=== PATIENT | female | born 1965 | race Caucasian/White ===

== ENCOUNTER 2021-11-15 00:09 | Emergency (ER) | payer MEDICAID, SELFPAY ==
--- NOTE | ~2021-11-15 | XR_ITS ---
EXAMINATION: XR TIBIA/FIBULA, LEFT XR ANKLE, LEFT CLINICAL INFORMATION: Fall 3 days ago COMPARISON: None TECHNIQUE: 2 views of the left tibia/fibula. 3 views of the left ankle. FINDINGS: Left tibia/fibula: There is an obliquely oriented distal tibial diaphyseal fracture. Slight posterior displacement of the distal fragment by 0.3 cm. Nondisplaced fracture of the distal fibular metadiaphysis. The knee is well aligned. Diffuse soft tissue swelling of the lower leg. Left ankle: Partially visualized tibial and fibular fractures. The ankle mortise is congruent. No ankle joint effusion. Prominent heel spurs. XR/XR tibia fibula LT 2V IMPRESSION: Mid tibial diaphyseal fracture with slight displacement. Nondisplaced distal fibular fracture.
--- NOTE | ~2021-11-15 | XR_ITS ---
EXAMINATION: XR TIBIA/FIBULA, LEFT XR ANKLE, LEFT CLINICAL INFORMATION: Fall 3 days ago COMPARISON: None TECHNIQUE: 2 views of the left tibia/fibula. 3 views of the left ankle. FINDINGS: Left tibia/fibula: There is an obliquely oriented distal tibial diaphyseal fracture. Slight posterior displacement of the distal fragment by 0.3 cm. Nondisplaced fracture of the distal fibular metadiaphysis. The knee is well aligned. Diffuse soft tissue swelling of the lower leg. Left ankle: Partially visualized tibial and fibular fractures. The ankle mortise is congruent. No ankle joint effusion. Prominent heel spurs. XR/XR ankle LT min 3V IMPRESSION: Mid tibial diaphyseal fracture with slight displacement. Nondisplaced distal fibular fracture.
[2021-11-15 01:30] VITALS: BP 118/68; PULSE 88; RESP 16; TEMP 36.3; O2SAT 97; BMI 28.1
--- NOTE | 2021-11-15 01:32 | ED_ITS ---
HPI - Fall General Chief Complaint: Fall Stated Complaint: ankle inj Time Seen by Provider: 11/15/21 01:31 History of Present Illness HPI Narrative: Patient is a 56-year-old female presents today with having left ankle injury. Patient slipped 3 days ago. Complaining of pain over the ankle and over the distal tib-fib area. No systemic complaints. No head injury. Not on blood thinners. Patient's home. No history diabetes. The fall was mechanical in nature. There was no loss of consciousness no nausea no vomiting no focal weakness Related Data Home Medications Medication Instructions Recorded Confirmed omeprazole 20 mg capsule,delayed 1 cap PO DAILY 11/15/21 11/15/21 release sertraline 100 mg tablet 1 tab PO DAILY 11/15/21 11/15/21 trazodone 100 mg tablet 1 tab PO BEDTIME 11/15/21 11/15/21 Previous Rx's Medication Instructions Recorded ibuprofen 400 mg tablet 400 mg PO Q6H PRN #20 tab 11/15/21 oxycodone 5 mg tablet 5 mg PO Q8H PRN #7 tab 11/15/21 Allergies Allergy/AdvReac Type Severity Reaction Status Date / Time No Known Allergies Allergy Unverified 08/31/21 14:23 [No Known Allergies*] Review of Systems Review of Systems: No fever no chills no chest pain or shortness. Positive pain localized to the left lower extremity Yes all other systems are reviewed and are negative [facility] Past Medical History Medical History (Updated 11/15/21 @ 02:38 by Jenna Rodriguez MD) Anxiety Asthma Hypertension Panic attack Social History Social History (System 08/31/21 @ 14:23 by Lou Castellano) Advance Directives: No Physical Exam Vital Signs: Vital Signs: Last Vital Signs Temp 97.3 F 11/15/21 01:30 Pulse 88 11/15/21 01:30 Resp 16 11/15/21 01:30 BP 118/68 11/15/21 01:30 Pulse Ox 97 11/15/21 01:30 BMI result Body Mass Index 28.1 Appearance: Alert. Oriented X3. No acute distress. Eyes: Pupils equal, round and reactive to light. ENT: Pharynx normal. Neck: Normal inspection. Neck supple. No lymph nodes noted. No crepitus CVS: Normal heart rate and rhythm. Pulses normal. Normal S1 and S2 Respiratory: No respiratory distress. Breath sounds normal. No Wheezing. No rales Abdomen: Soft and nontender. No rigidity. No distention. good BS x4 Skin: Skin warm and dry. Normal skin color. Normal skin turgor. Extremities: Left lower extremity there is swelling and pain on palpation of medial and lateral malleolus. Positive bruising/pain noted in the distal tib- fib area. Pulses 2+ at dorsalis pedis. Sensation distally intact. Able to move her toes without any difficulties. Capillary refill less than 2 seconds. Neuro: Oriented X 3. No motor deficit. No sensory deficit. Moving all extermities. No slurred speech Procedures Orthopedic Splinting/Casting Injury #1: Side: left Lower Extremity Injury Location: lower leg Lower Extremity Immobilizer: posterior splint and stirrup splint Other Orthopedic Equipment: crutches MDM - Fall MDM Narrative Medical decision making narrative: X-ray showed a distal tibial fibular fracture. Patient in no distress. No weight-bearing. Will have patient follow-up orthopedics on outpatient basis. Splint was placed. In stable condition Differential Diagnosis Differential diagnosis: Likely fracture Medical Records Attestation: I reviewed the patient's medical records. Lab Data Attestation: I reviewed the patient's lab results. Discharge Plan Discharge Clinical Impression: Tibia/fibula fracture, shaft Patient Disposition: Home, Self-Care Instructions: Leg Fracture (ED), Crutch Instructions (ED) Prescriptions: New ibuprofen 400 mg tablet 400 mg PO Q6H PRN (Reason: pain) Qty: 20 0RF oxycodone 5 mg tablet 5 mg PO Q8H PRN (Reason: pain) Qty: 7 0RF No Action sertraline 100 mg tablet 1 tab PO DAILY 0RF trazodone 100 mg tablet 1 tab PO BEDTIME 0RF omeprazole 20 mg capsule,delayed release(DR/EC) 1 cap PO DAILY 0RF Referrals: Filiberto Pablo MD [Physician] - 2 days (Please use the crutches. Nonweightbearing. Close follow-up with orthopedics on an outpatient basis)
[2021-11-15] MEDS: oxyCODONE HCl Immed Release 5 MG TABLET PO (02:40)
--- NOTE | 2021-11-15 02:56 | PC.NURSE ---
Posterior short leg splint and sugar tong applied to right leg. Dr Rodriguez assessed splints for placement. Pt given crutches, teach back done.
== END 2021-11-15 03:18 | disposition home or self-care (01) ==
PROVIDERS: Emergency Provider Emergency Medicine Emergency Medical Services
DX: S82.302A Unspecified fracture of lower end of left tibia, initial encounter for closed fracture (principal); M79.662 Pain in left lower leg; W01.0XXA Fall on same level from slipping, tripping and stumbling without subsequent striking against object, initial encounter; Y93.9 Activity, unspecified; Y92.9 Unspecified place or not applicable; Y99.9 Unspecified external cause status; Z79.899 Other long term (current) drug therapy
CPT/HCPCS: 29505; 73590; 73610; 99283

== ENCOUNTER 2021-11-25 07:39 | Outpatient (REF) | payer MEDICAID, SELFPAY ==
--- NOTE | ~2021-11-25 | XR_ITS ---
EXAMINATION: XR TIBIA AND FIBULA, LEFT CLINICAL INFORMATION: Tibia/fibular fracture. COMPARISON: 11/15/2021 tibia/fibular radiographs. TECHNIQUE: AP and lateral views of the left tibia and fibula were obtained. FINDINGS: Acute, minimally displaced and varus angulated fractures of the distal diaphyses of the tibia and fibula. The proximal tibia and fibular are intact. Moderate surrounding soft tissue swelling is seen. XR/XR tibia fibula LT 2V IMPRESSION: Acute, minimally displaced and angulated fractures of the distal diaphyses of the tibia and fibula with moderate soft tissue swelling.
== END 2021-11-25 07:40 | disposition home or self-care (01) ==
LOC: HO.HOSX 07:39
PROVIDERS: Visit Provider Physician Assistant
DX: S82.202A Unspecified fracture of shaft of left tibia, initial encounter for closed fracture (principal); S82.402A Unspecified fracture of shaft of left fibula, initial encounter for closed fracture; W01.0XXA Fall on same level from slipping, tripping and stumbling without subsequent striking against object, initial encounter; Y93.9 Activity, unspecified; Y92.9 Unspecified place or not applicable; Y99.9 Unspecified external cause status
CPT/HCPCS: 73590; 99202

== ENCOUNTER 2021-11-26 13:45 | Inpatient (IN) | payer MEDICAID, SELFPAY ==
--- NOTE | 2021-11-25 14:34 | P.CONAN_ITS ---
Documented by User: Rossy Gutierrez NP 11/25/21 14:35 HPI - Anesthesia Eval Consult details Narrative: 56yo F for Left Tibial I-M Nailing PMFSH Active Problems Active Problems: All Active Problems (Updated 11/25/21 @ 13:04 by Rossy Gutierrez NP) Fracture of left tibia and fibula (Acute) Past Medical History Medical History Anxiety Asthma GERD (gastroesophageal reflux disease) HLD (hyperlipidemia) Hypertension Panic attack Social History Social History Patient Tobacco Use Status: Current everyday Tobacco user Tobacco use type: Cigarette Cigarettes Per Day: 3 Years Smoked: 10 Smoked in Last 30 Days: Yes Use of substances other than those prescribed or required for medical reasons: No Are you DNR?: No Advance Directives: No Advance Directives Information Provided: Yes Current occupational status: unemployed Meds Allergies Allergy/AdvReac Type Severity Reaction Status Date / Time No Known Allergies Allergy Unverified 11/25/21 11:39 [No Known Allergies*] Home Medications Medication Instructions Recorded Confirmed Last Taken Type omeprazole 20 mg capsule,delayed 1 cap PO DAILY 11/15/21 11/15/21 11/14/21 09:00 History release 100 mg sertraline 100 mg tablet 1 tab PO DAILY 11/15/21 11/15/21 11/14/21 09:00 History trazodone 100 mg tablet 1 tab PO BEDTIME 11/15/21 11/15/21 1 Day Ago History ~11/14/21 albuterol sulfate 90 mcg/actuation 2 puff PO Q4-6H PRN 11/25/21 Unknown History aerosol inhaler (ProAir HFA) amlodipine 5 mg tablet 5 mg PO DAILY 11/25/21 Unknown History atorvastatin 20 mg tablet 20 mg PO DAILY 11/25/21 Unknown History azelastine 137 mcg (0.1 %) nasal 2 spray INTRANASAL BID 11/25/21 Unknown History spray aerosol cholecalciferol (vitamin D3) 50 50 mcg PO DAILY 11/25/21 Unknown History mcg (2,000 unit) capsule escitalopram oxalate 20 mg tablet 20 mg PO DAILY 11/25/21 Unknown History losartan 100 mg tablet 100 mg PO DAILY 11/25/21 Unknown History nicotine (polacrilex) 2 mg buccal mg PO 11/25/21 Unknown History lozenge Exam Exam Date and Time: November 25, 2021 1434 Assessment and Plan Assessment Anesthesia Assessment: Chart Reviewed Documented by User: Hilary Sterling MD 11/26/21 12:36 [facility] Past Medical History Medical History Anxiety Asthma GERD (gastroesophageal reflux disease) HLD (hyperlipidemia) Hypertension Panic attack Surgical History History of Problems with Anesthesia: No Social History Social History Patient Tobacco Use Status: Current everyday Tobacco user Tobacco use type: Cigarette Cigarettes Per Day: 3 Years Smoked: 10 Smoked in Last 30 Days: Yes Use of substances other than those prescribed or required for medical reasons: No Are you DNR?: No Advance Directives: No Advance Directives Information Provided: Yes Current occupational status: unemployed Meds Allergies Allergy/AdvReac Type Severity Reaction Status Date / Time No Known Allergies Allergy Unverified 11/25/21 11:39 [No Known Allergies*] Home Medications Medication Instructions Recorded Confirmed Last Taken Type omeprazole 20 mg capsule,delayed 1 cap PO DAILY 11/15/21 11/15/21 11/14/21 09:00 History release 100 mg sertraline 100 mg tablet 1 tab PO DAILY 11/15/21 11/15/21 11/14/21 09:00 History trazodone 100 mg tablet 1 tab PO BEDTIME 11/15/21 11/15/21 1 Day Ago History ~11/14/21 albuterol sulfate 90 mcg/actuation 2 puff PO Q4-6H PRN 11/25/21 Unknown History aerosol inhaler (ProAir HFA) amlodipine 5 mg tablet 5 mg PO DAILY 11/25/21 Unknown History atorvastatin 20 mg tablet 20 mg PO DAILY 11/25/21 Unknown History azelastine 137 mcg (0.1 %) nasal 2 spray INTRANASAL BID 11/25/21 Unknown History spray aerosol cholecalciferol (vitamin D3) 50 50 mcg PO DAILY 11/25/21 Unknown History mcg (2,000 unit) capsule escitalopram oxalate 20 mg tablet 20 mg PO DAILY 11/25/21 Unknown History losartan 100 mg tablet 100 mg PO DAILY 11/25/21 Unknown History nicotine (polacrilex) 2 mg buccal mg PO 11/25/21 Unknown History lozenge Exam Airway Mallampati Class: II TM Dist: >3cm Neck ROM: Full Partial: Upper and Lower Loose/Missing/Broken Teeth: Yes, Upper and Lower Heart: RRR Lungs: CTA Assessment and Plan Assessment Anesthesia Assessment: Anesthesia Plan Discussed Final Anesthetic Review History of Problems with Anesthesia: No NPO: Yes ASA Class: II Final Preanesthetic Review: Meds/Allgs Chart Reviewed, Consent Obtained/Reviewed and Anes Risks/Benef Reviewed Patient Risk: Low Procedure Risk: Low Anesthetic Plan Anesthetic Plan: GA Disposition: Standard PACU
[2021-11-26] VITALS (13 sets, daily range): BP systolic 125–176; BP diastolic 63–105; PULSE 78–114; RESP 14–20; TEMP 36.3–37; O2SAT 94–98; BMI 28.1
--- NOTE | ~2021-11-26 | FL_ITS ---
EXAMINATION: XR FLUOROSCOPY WITH IMAGES CLINICAL INFORMATION: Fracture COMPARISON: Previous x-ray 11/25/2021 TECHNIQUE: Fluoroscopy performed by Dr. Filiberto Pablo. Fluoroscopy time: 0.9 minutes DAP: 0.06 Gycm2 Images: 8 FINDINGS: Fluoroscopy guidance was provided for ORIF of left tibial fracture. Images demonstrate an intramedullary fab and 2 proximal and one distal screw with improved alignment. FL/FL guidance in OR IMPRESSION: Fluoroscopy guidance for ORIF of left tibial fracture.
[2021-11-26] MEDS: Lactated Ringers 1,000 ML 100 ML IVCONT ×2 (11:01→14:55)
--- NOTE | 2021-11-26 13:33 | P.BOP_ITS ---
Brief Operative Note Date of Service: 11/26/21 Pre-op diagnosis: Left tibia/fibula fracture Post-op diagnosis: same Procedure: Left tibial IMN Implants: [employer] T2 [id number] tibial nail Surgeon: Filiberto Pablo MD Anesthesia: GETA and local Was an Cement Tester Assistant used for this Procedure?: Yes Cement Tester Assistant: Parth Morgan Estimated blood loss (mL): 250 IV fluids (mL): 1,000 Pathology: none sent Condition: stable Disposition: PACU
--- NOTE | 2021-11-26 13:33 | MHC.SHP ---
Pre-Procedural Eval Section A Date of Service: 11/26/21 The patient is an INPATIENT: No Changes since office visit: Yes Patient answered all questions; No Cold of Flu in the past 2 weeks, No New Medical Problems and No Changes in Medication The History & Physical has been completed within 30 days and I have reviewed it.: Yes Section B Chief Complaint: Unspecified fracture of shaft of left tibia, Allergies: Allergies Allergy/AdvReac Type Severity Reaction Status Date / Time No Known Allergies Allergy Unverified 11/25/21 11:39 [No Known Allergies*] Plan I have reviewed the history and physical and performed a pertinent physical examination on my patient. No changes have occurred unless specified.
[2021-11-26] MEDS: HYDROmorphone HCl 0.5 MG/0.5 ML SYRINGE 0.25 MG IVPUSH ×2 (13:55→14:00)
[2021-11-26] MEDS: oxyCODONE HCl Immed Release 5 MG TABLET 10 MG PO ×2 (14:00→21:38)
[2021-11-26] MEDS: Acetaminophen 325 MG TABLET 650 MG PO (14:22)
--- NOTE | 2021-11-26 14:50 | PHA.MEDREC ---
Pharmacy Consult ? Medication Reconciliation Pharmacy has completed the medication reconciliation.
[2021-11-26 15:08] LABS: COVID-19 Test Negative (Negative); IDNOW Serial# 16C4AD1C
--- NOTE | 2021-11-26 15:39 | P.CONIM_ITS ---
History of Present Illness Data of Consult Service Date: 11/26/21 Requesting physician: Parth Morgan Primary Care Provider: [facility] Reason for consult: medical management This is a 56-year-old female with history of hypertension who is admitted after undergoing operative fixation of left tib-fib fracture. She initially was seen in the emergency department on November 15 after a fall. At that time imaging showed a mid tibial diaphyseal fracture with slight displacement and nondisplaced distal fibular fracture. The hospitalists were asked to see her in consultation for medical management. She is reporting pain in her left leg otherwise has no specific complaints at this time. Review of Systems Review of Systems: Yes all other systems are reviewed and are negative Constitutional: Constitutional: Denies chills and Denies fever(s) Cardiovascular: Cardiovascular: Denies chest pain, Denies palpitations and Denies dyspnea Respiratory: Respiratory: Denies cough and Denies dyspnea Gastrointestinal: Gastrointestinal: Denies abdominal pain, Denies diarrhea, Denies nausea and Denies vomiting Endocrine: Endocrine: Denies palpitations [facility] Medical History Anxiety Asthma GERD (gastroesophageal reflux disease) HLD (hyperlipidemia) Hypertension Panic attack Functional capacity: independent ambulation Pertinent family history: Reviewed and patient denies family history of coronary artery disease, stroke, cancer Social History Household Members: None Housing: Apartment Do you presently have visiting nurse or other home services: No Patient Tobacco Use Status: Current everyday Tobacco user Tobacco use type: Cigarette Cigarettes Per Day: 3 Years Smoked: 10 Smoked in Last 30 Days: Yes Patient Interested in Nicotine Replacement: Yes Patient Given Instructions on How to Stop Smoking: Yes Date Education Initiated: 11/26/21 Use of substances other than those prescribed or required for medical reasons: No Have you been hit, kicked, punched, or otherwise hurt by someone within the past year? If so, by whom?: No Do you feel safe in your current relationship?: Yes Is there a partner from a previous relationship who is making you feel unsafe now?: No Are you made to feel afraid or neglected: No Are you DNR?: No Advance Directives: No Advance Directives Information Provided: Yes Do you have thoughts of harming others: None Do you have a plan to hurt others: No Plan Recently lost weight without trying: No Nutrition Risks: No Nutritional Risk Current occupational status: unemployed Meds Allergies Allergy/AdvReac Type Severity Reaction Status Date / Time No Known Allergies Allergy Unverified 11/25/21 11:39 [No Known Allergies*] Active Medications: Current Medications Acetaminophen (Acetaminophen 325 Mg Tablet) 650 mg PO Q6H PRN PRN Reason: Pain, Mild (Pain Scale 1-3) Docusate Sodium (Docusate Sodium 100 Mg Capsule) 100 mg PO BID [facility] Hydromorphone HCl (Hydromorphone Hcl 1 Mg/Ml Syringe) 0.25 mg IVPUSH Q4H PRN; Protocol PRN Reason: Pain, Severe (Pain Scale 7-10) Lactated Ringer's (Lr) 1,000 mls @ 100 mls/hr IVCONT .Q10H [facility] Last Admin: 11/26/21 14:55 Dose: 100 mls/hr Documented by: Diphenhydramine HCl 25 mg/ (Sodium Chloride) 50.5 mls @ 200 mls/hr IV ONCE [facility] Last Infusion: 11/26/21 15:33 Dose: Infused Documented by: Cefazolin Sodium/Dextrose (Ancef) 2 gm in 50 mls @ 100 mls/hr IV POSTOP ONE Stop: 11/26/21 18:29 Ondansetron HCl (Ondansetron Hcl 4 Mg/2 Ml Vial) 4 mg IVPUSH Q8H PRN PRN Reason: Nausea Oxycodone HCl (Oxycodone Hcl Immed Release 5 Mg Tablet) 10 mg PO Q4H PRN PRN Reason: Pain, Moderate (Pain Scale 4-6 Oxycodone HCl (Oxycodone Hcl Er 10 Mg Tab.Er.12h) 10 mg PO BID [facility] Sodium Chloride (0.9 % Sodium Chloride Flush 3 Ml Syringe) 3 ml IVFLUSH QSHIFT [facility] Last Admin: 11/26/21 15:35 Dose: Not Given Documented by: Home Medications Medication Instructions Recorded Confirmed Last Taken Type omeprazole 20 mg capsule,delayed 1 cap PO DAILY 11/15/21 11/26/21 11/14/21 09:00 History release 100 mg trazodone 100 mg tablet 1 tab PO BEDTIME 11/15/21 11/26/21 1 Day Ago History ~04/24/22 albuterol sulfate 90 mcg/actuation 2 puff PO Q4-6H PRN 11/25/21 11/26/21 Unknown History aerosol inhaler (ProAir HFA) amlodipine 5 mg tablet 5 mg PO DAILY 11/25/21 11/26/21 Unknown History atorvastatin 20 mg tablet 20 mg PO DAILY 11/25/21 11/26/21 Unknown History cholecalciferol (vitamin D3) 50 50 mcg PO DAILY 11/25/21 11/26/21 Unknown History mcg (2,000 unit) capsule escitalopram oxalate 20 mg tablet 20 mg PO DAILY 11/25/21 11/26/21 Unknown History losartan 100 mg tablet 100 mg PO DAILY 11/25/21 11/26/21 Unknown History buspirone 5 mg tablet 1 tab PO BID 11/26/21 11/26/21 Unknown History Physical Exam Vital Signs and Narrative: Vital Signs: Last Vital Signs Temp 98.3 F 11/26/21 15:15 Pulse 96 11/26/21 15:15 Resp 16 11/26/21 15:15 BP 131/92 H 11/26/21 15:15 Pulse Ox 97 11/26/21 15:15 BMI result Body Mass Index 28.1 Const: General: cooperative, comfortable, alert and awake Nutritional Appearance: average body habitus Orientation/consciousness: patient oriented x3 Eyes: Pupils: Equal, round and reactive pupils present EOM: EOMs intact bilaterally Resp: Effort & Inspection: normal respiratory effort and able to speak in complete sentences Auscultation: clear to auscultation bilaterally Cardio: Rate: regular rate Heart sounds: S1 normal heart sound present and S2 normal heart sound present GI: Inspection: No distended Palpation (GI): Soft to palpation and nontender Neuro: General: patient oriented x3 Cranial nerves: Yes Equal, round and reactive pupils present Extrem: Other: left leg wrapped in mary bandage to mid thigh, offloading boot Results Labs Labs: Laboratory Results - last 24 hr 11/26/21 14:23 COVID-19 ([facility]) Negative COVID-19 Clin Com See Note Assessment and Plan (1) Fracture of left tibia and fibula: Status: Acute Plan This is a 56-year-old female with history of anxiety, asthma, hypertension who sustained fall at the end of October sustaining left tib-fib fracture status post left tibial IMN left tib/fib fracture s/p IMN management per orthopedic team Hypertension BP under adequate control Continue home dose of losartan, Norvasc Monitor blood pressure closely GERD Continue omeprazole Asthma No acute exacerbation at this time Continue home inhalers DVT prophylaxis-SCDs Attending: dr. narayan Thank you for allowing us to participate in the care of this patient. we will follow along with you.
[2021-11-26] MEDS: HYDROmorphone HCl 1 MG/ML SYRINGE 0.25 MG IVPUSH (17:58)
[2021-11-26] MEDS: ceFAZolin Sodium/Dextrose,Iso 2 GM/50 ML PIGGYBACK IV (17:58)
[2021-11-26] MEDS: Docusate Sodium 100 MG CAPSULE PO (21:35)
[2021-11-26] MEDS: traZODone HCL 100 MG TABLET PO (21:35)
[2021-11-26] MEDS: busPIRone HCl 5 MG TABLET PO (21:35)
[2021-11-26] MEDS: oxyCODONE HCl ER 10 MG TAB.ER.12H PO (21:35)
[2021-11-26] MEDS: 0.9 % Sodium Chloride Flush 3 ML SYRINGE IVFLUSH (21:36)
[2021-11-27 03:30] VITALS: BP 138/80; PULSE 96; RESP 14; TEMP 36.3; O2SAT 100
[2021-11-27 06:26] LABS: Hematocrit 36.7 % (37.0-47.0); Hemoglobin 12.5 g/dl (12.0-16.0)
[2021-11-27] MEDS: oxyCODONE HCl Immed Release 5 MG TABLET 10 MG PO (06:51)
[2021-11-27 08:00] VITALS: BP 138/80; PULSE 91; RESP 18; TEMP 36.2; O2SAT 96
[2021-11-27 08:52] VITALS: BP 138/80; PULSE 91; O2SAT 96
--- NOTE | 2021-11-27 09:28 | MHC.CM.PN ---
EMR REVIEWED, PT ADMITTED S/P LT TIBIA FX REPAIR FROM INJURY ON 11/15/21, CM MET W/PT WHO REPORTS SHE LIVES ALONE, IS INDEP W/CARE, HAS CRUTCHES AT HOME AND A BROKEN W/C, PHYSICAL THERAPY HAS REQUESTED A SCRIPT FOR A FRONT WHEELED WALKER FOR PT, PT DENIES HAVING HOME SERVICES, PT VERIFIES PCP IS FAVIOLA JEAN-BAPTISTE, PFIZER VACCINE X2, AND PT DECLINES TO COMPLETE A HCP SHE IS IN A HURRY TO D/C. D/C PLAN: HOME NO SERVICES W/OUTPT FOLLOW UP W/SURGEON, PT TO ARRANGE TRANSPORT.
[2021-11-27] MEDS: Atorvastatin Calcium 20 MG TABLET PO (09:31)
[2021-11-27] MEDS: Docusate Sodium 100 MG CAPSULE PO (09:31)
[2021-11-27] MEDS: Omeprazole 20 MG CAPSULE.DR PO (09:31)
[2021-11-27] MEDS: Aspirin 325 MG TABLET PO (09:31)
[2021-11-27] MEDS: Losartan Potassium 50 MG TABLET 100 MG PO (09:31)
[2021-11-27] MEDS: oxyCODONE HCl ER 10 MG TAB.ER.12H PO (09:32)
[2021-11-27] MEDS: Escitalopram Oxalate 20 MG TABLET PO (09:32)
[2021-11-27] MEDS: Cholecalciferol (Vitamin D3) 25 MCG TABLET 50 MCG PO (09:32)
[2021-11-27] MEDS: 0.9 % Sodium Chloride Flush 3 ML SYRINGE IVFLUSH (09:33)
[2021-11-27] MEDS: amLODIPine Besylate 5 MG TABLET PO (09:35)
[2021-11-27] MEDS: busPIRone HCl 5 MG TABLET PO (09:42)
--- NOTE | 2021-11-27 11:01 | HO.PM.IMPN ---
Subjective Subjective Date of Service: 11/27/21 Interval History: seen and examined this morning s/p left tib/fib surgery no nausea or vomiting. tolerating diet. voiding without difficulty. pain under adequate control Physical Exam Vital Signs: Vital Signs: Last Vital Signs Temp 97.2 F 11/27/21 08:00 Pulse 91 11/27/21 08:52 Resp 18 11/27/21 08:00 BP 138/80 11/27/21 08:52 Pulse Ox 96 11/27/21 08:52 BMI result Body Mass Index 28.1 Objective Data Active Medications Acetaminophen (Acetaminophen 325 Mg Tablet) 650 mg PO Q6H PRN PRN Reason: Pain, Mild (Pain Scale 1-3) Albuterol Sulfate (Albuterol Sulfate 90 Mcg 8 Gm Inhaler) 2 puff INHALE Q4H PRN PRN Reason: Shortness Of Breath Amlodipine Besylate (Amlodipine Besylate 5 Mg Tablet) 5 mg PO DAILY [facility]; Protocol Last Admin: 11/27/21 09:35 Dose: 5 mg Documented by: MARIA A Aspirin (Aspirin 325 Mg Tablet) 325 mg PO BID [facility] Last Admin: 11/27/21 09:31 Dose: 325 mg Documented by: MARIA A Atorvastatin Calcium (Atorvastatin Calcium 20 Mg Tablet) 20 mg PO DAILY [facility] Last Admin: 11/27/21 09:31 Dose: 20 mg Documented by: MARIA A Buspirone HCl (Buspirone Hcl 5 Mg Tablet) 5 mg PO BID [facility] Last Admin: 11/27/21 09:42 Dose: 5 mg Documented by: MARIA A Docusate Sodium (Docusate Sodium 100 Mg Capsule) 100 mg PO BID [facility] Last Admin: 11/27/21 09:31 Dose: 100 mg Documented by: MARIA A Escitalopram Oxalate (Escitalopram Oxalate 20 Mg Tablet) 20 mg PO DAILY [facility] Last Admin: 11/27/21 09:32 Dose: 20 mg Documented by: MARIA A Hydromorphone HCl (Hydromorphone Hcl 1 Mg/Ml Syringe) 0.25 mg IVPUSH Q4H PRN; Protocol PRN Reason: Pain, Severe (Pain Scale 7-10) Last Admin: 11/26/21 17:58 Dose: 0.25 mg Documented by: GEOVANY Diphenhydramine HCl 25 mg/ (Sodium Chloride) 50.5 mls @ 200 mls/hr IV ONCE [facility] Last Infusion: 11/26/21 15:33 Dose: 0 mls/hr Documented by: GEOVANY Losartan Potassium (Losartan Potassium 50 Mg Tablet) 100 mg PO DAILY [facility]; Protocol Last Admin: 11/27/21 09:31 Dose: 100 mg Documented by: MARIA A Nicotine Polacrilex (Nicotine Polacrilex 2 Mg Gum) 2 mg BUCCAL Q2H PRN PRN Reason: Nicotine Cravings Omeprazole (Omeprazole 20 Mg Capsule.Dr) 20 mg PO DAILY@0630 [facility] Last Admin: 11/27/21 09:31 Dose: 20 mg Documented by: MARIA A Ondansetron HCl (Ondansetron Hcl 4 Mg/2 Ml Vial) 4 mg IVPUSH Q8H PRN PRN Reason: Nausea Oxycodone HCl (Oxycodone Hcl Immed Release 5 Mg Tablet) 10 mg PO Q4H PRN PRN Reason: Pain, Moderate (Pain Scale 4-6 Last Admin: 11/27/21 06:51 Dose: 10 mg Documented by: DIEGO Oxycodone HCl (Oxycodone Hcl Er 10 Mg Tab.Er.12h) 10 mg PO BID [facility] Last Admin: 11/27/21 09:32 Dose: 10 mg Documented by: MARIA A Sodium Chloride (0.9 % Sodium Chloride Flush 3 Ml Syringe) 3 ml IVFLUSH QSHIFT [facility] Last Admin: 11/27/21 09:33 Dose: 3 ml Documented by: MARIA A Trazodone HCl (Trazodone Hcl 100 Mg Tablet) 100 mg PO BEDTIME [facility] Last Admin: 11/26/21 21:35 Dose: 100 mg Documented by: DIEGO Vitamin D (Cholecalciferol (Vitamin D3) 25 Mcg Tablet) 50 mcg PO DAILY [facility] Last Admin: 11/27/21 09:32 Dose: 50 mcg Documented by: MARIA A Labs CBC & Chem 7: 11/27/21 05:54 Labs: Laboratory Results - last 24 hr 11/26/21 14:23 COVID-19 ([facility]) Negative COVID-19 Clin Com See Note
--- NOTE | 2021-11-27 11:02 | PC.NURSE ---
IV REMOVED. EDUCATION PROVIDED BY THIS RN TO PATIENT. PATIENT VERBALIZES UNDERSTANDING. DENIES PAIN UPON DISCHARGE.
--- NOTE | 2021-11-27 16:33 | HO.POSTANES ---
Post Anesthesia Evaluation Post Anesthesia Evaluation Vital Signs: Vital Signs Temp Pulse Resp BP Pulse Ox 11/27/21 08:52 91 138/80 96 11/27/21 08:00 97.2 F 91 18 138/80 96 Anesthesia: General LMA Mental Status: Awake Pain Control: Satisfactory Nausea/Vomiting: None Hydration: Adequate Anesthesia-Related Issues: No Anes. Related Issues
--- NOTE | 2021-12-07 12:26 | P.OP_ITS ---
Operative Note Operative Note Date of Service: 11/26/21 Narrative: Date of Service: 11/26/21 Pre-op diagnosis: Left tibia/fibula fracture Post-op diagnosis: same Procedure: Left tibial IMN Implants: Brittany Alpha T2 [id number] tibial nail Surgeon: Filiberto Pablo MD Anesthesia: GETA and local Was an Client Project Coordinator used for this Procedure?: Yes Client Project Coordinator: Parth Morgan Estimated blood loss (mL): 250 IV fluids (mL): 1,000 Pathology: none sent Condition: stable Disposition: PACU Procedure in detail: Patient was brought to the operating room and prepped and draped in standard sterile fashion. Time-out was called to identify proper site procedure proper surgeon and IV antibiotics per weight were administered. She was positioned on the fracture table and biplanar fluoroscopy confirmed initial fracture reduction. I then made a midline incision over th patellar tendon and then incised tihe paratenon and via a transpatellar approach placed the tip of a k- wire on the proximal tibia, just anterior to the articular surface on the lateral and just medial to the lateral emminence on the A. I then drilled into the metadiaphysis and an opening reamer. The articular surface and the soft tissues were protected at all times. I then placed a ball-tipped guidewire and I measured a 330 mm nail. While maintaining biplanar fracture reduction manually I reamed up to a 13. I then placed a [id number] mm nail. I then turned my attention to the proximal oblique scres which were inserted via the midline incision and inserted using standard AO technique and biplanar fluro to conform. Once I was satisfied with the position of the hip screw I turned my attention to the distal aspect of the nail. Using perfect caddo technique I placed 1 static distal interlocking screw in standard AO technique. I then removed all extraneous instrumentation. Final biplanar radiographs were taken. I was satisfied with the position of the hardware and the fracture reduction. I copiously irrigated and closed with absorbable sutures dirk and injected 30 mL of into the area of the incisions. The patient was placed in sterile dressing awakened from anesthesia brought to recovery room stable condition there were no known complications.
== END 2021-11-27 10:45 | disposition home or self-care (01) | DRG 313 ==
LOC: HO.SSSA 13:50 → HO.S3 14:17
PROVIDERS: Admitting Provider Physician Assistant; Visit Provider Orthopaedic Surgery
PROC: 0QSH36Z Reposition Left Tibia with Intramedullary Internal Fixation Device, Percutaneous Approach (ICD-10-PCS; CPT 27759; principal; 2021-11-26 12:00)
DX: S82.202A Unspecified fracture of shaft of left tibia, initial encounter for closed fracture (principal); F17.210 Nicotine dependence, cigarettes, uncomplicated; W19.XXXA Unspecified fall, initial encounter; S82.402A Unspecified fracture of shaft of left fibula, initial encounter for closed fracture; K21.9 Gastro-esophageal reflux disease without esophagitis; F41.9 Anxiety disorder, unspecified; I10 Essential (primary) hypertension; Z71.6 Tobacco abuse counseling; Z20.822 Contact with and (suspected) exposure to COVID-19; Z79.899 Other long term (current) drug therapy
CPT/HCPCS: 27759; 36415; 85014; 85018; 87635; 97161; C1713; C1769; J0690; J1170; J1200; J2250; J3010

== ENCOUNTER 2021-12-06 07:36 | Outpatient (REF) | payer MEDICAID, SELFPAY ==
--- NOTE | ~2021-12-06 | XR_ITS ---
EXAMINATION: XR TIBIA AND FIBULA, LEFT CLINICAL INFORMATION: Pain COMPARISON: 11/25/2021 TECHNIQUE: AP and lateral views of the left tibia and fibula were obtained. XR/XR tibia fibula LT 2V FINDINGS / IMPRESSION: Intramedullary fab present within the tibial diaphysis transfixing the previously seen distal tibial diaphyseal fracture. There are 2 proximal and one distal interlocking screws. The tibial fracture is in near anatomic alignment. Improved alignment of the oblique distal fibular diametaphyseal fracture. Diffuse soft tissue swelling.
== END 2021-12-06 07:37 | disposition home or self-care (01) ==
LOC: HO.HOSX 07:36
PROVIDERS: Visit Provider Physician Assistant
DX: S82.302D Unspecified fracture of lower end of left tibia, subsequent encounter for closed fracture with routine healing (principal); S82.832D Other fracture of upper and lower end of left fibula, subsequent encounter for closed fracture with routine healing
CPT/HCPCS: 73590; 99212

== ENCOUNTER 2022-01-03 07:23 | Outpatient (REF) | payer MEDICAID, SELFPAY | END 2022-01-03 07:24 | disposition home or self-care (01) | LOC: HO.HOSX 07:23 | PROVIDERS: Visit Provider Physician Assistant | DX: Z13.89 Encounter for screening for other disorder (principal) ==

== ENCOUNTER 2022-01-07 07:24 | Outpatient (REF) | payer MEDICAID, SELFPAY | END 2022-01-07 07:25 | disposition home or self-care (01) | LOC: HO.HOSX 07:24 | PROVIDERS: Visit Provider Physician Assistant | DX: Z13.89 Encounter for screening for other disorder (principal) ==

== ENCOUNTER 2022-01-31 12:32 | Outpatient (REF) | payer MEDICAID, SELFPAY ==
--- NOTE | ~2022-01-31 | XR_ITS ---
EXAMINATION: XR TIBIA AND FIBULA, LEFT CLINICAL INFORMATION: Pain in the left leg. COMPARISON: Left leg 12/06/2021, 11/15/2021 TECHNIQUE: AP and lateral views of the left tibia and fibula were obtained. FINDINGS: Status post internal fixation with intramedullary fab of the distal tibial shaft fracture. Fracture line of the tibia demonstrates progressive healing. The tibial fracture line is now only partially visualized at the cortical margin posteriorly and medially. Oblique fracture of the fibula shows no change in alignment of the fracture however the fracture line remains radiolucent. XR/XR tibia fibula LT 2V IMPRESSION: Status post internal fixation of tibia fracture. Evidence of healing of the tibia fracture. Fibular fracture has no change in alignment however remains radiolucent.
== END 2022-01-31 12:33 | disposition home or self-care (01) ==
LOC: HO.HOSX 12:32
PROVIDERS: Visit Provider Physician Assistant
DX: M79.605 Pain in left leg (principal)
CPT/HCPCS: 73590

== ENCOUNTER 2022-03-14 12:54 | Outpatient (REF) | payer MEDICAID, SELFPAY | END 2022-03-14 12:55 | disposition home or self-care (01) | LOC: HO.HOSX 12:54 | PROVIDERS: Visit Provider Physician Assistant | DX: Z13.89 Encounter for screening for other disorder (principal) ==

== ENCOUNTER 2024-06-12 13:27 | Outpatient (REF) | payer MEDICAID, SELFPAY ==
--- NOTE | ~2024-06-12 | MM_ITS ---
EXAMINATION: MM DIAGNOSTIC DIGITAL BREAST TOMOSYNTHESIS, BILATERAL US BREAST LIMITED, LEFT MAMMOGRAPHY: CLINICAL INFORMATION: 59-year-old female, no priors available (last mammogram was in 2007, and is unobtainable), with complaining of palpable lump along the left medial areolar margin. COMPARISON: Mammography: None. This will serve as the new baseline examination. TECHNIQUE: Digital breast tomosynthesis is performed in both the craniocaudal and mediolateral oblique views along with computer-aided detection (CAD). Synthesized 2D images are generated from the tomosynthesis. In addition, full field right exaggerated lateral CC view, as well as 3-D spot compression left CC and MLO views were obtained. This was followed by targeted left breast ultrasound. FINDINGS: There are scattered areas of fibroglandular density (ACR BI-RADS breast composition Category b). Multiple benign calcifications (dystrophic) are present in both breasts. Palpable abnormality appears to relate spatially to a large rounded peripherally calcified oil cyst measuring 1.4 cm in diameter, within the approximate 9:00 axis left breast. We will evaluate this region with ultrasound. There are no suspicious grouped calcifications, areas of architectural distortion, or suspicious masses in either breast. There are no skin or axillary abnormalities. ULTRASOUND: CLINICAL INFORMATION: Palpable abnormality left breast 9:00 axis. COMPARISON: No prior. TECHNIQUE: Targeted sonographic evaluation left breast was performed using a high frequency linear transducer. Attention was given to the 7:00 to the 11:00 axis to include the area of palpable concern. Selected archived documentation. FINDINGS: LEFT BREAST: -At the 9:00 axis, 1 cm from the nipple, there is a peripherally calcified shadowing oil cyst measuring 1.3 x 1.1 x 1.4 cm, correlating with the area of palpable concern. This is benign. -At the 9:00 axis, 2 cm from the nipple, there is a 7 mm oil cyst. Slightly more superiorly of the same level there is a 6 mm oil cyst. -There are no suspicious findings. MM/MM tomosynthesis diagnostic BI IMPRESSION: -There are no findings suspicious for malignancy in either breast. There are benign dystrophic calcifications bilaterally. -Palpable area of concern 9:00 left breast correlates with a large 1.4 cm peripherally calcified oil cyst. There are 2 adjacent smaller oil cysts in the 9:00 axis left breast. These findings are benign. -Recommend the patient resume routine annual screening. OVERALL ASSESSMENT: Mammography: BI-RADS 2 - Benign Findings Ultrasound: BI-RADS 2 - Benign Findings RECOMMENDATION: 1 year F/U This patient's information was entered into a reminder system with a target due date for their next mammogram. Electronically signed by: Liang Herron MD 06/12/2024 02:17 PM ADRYAN GIRON
== END 2024-06-12 13:28 | disposition home or self-care (01) ==
LOC: HO.MAMMO 13:27
PROVIDERS: PCP Nurse Practitioner Primary Care; Visit Provider Nurse Practitioner Primary Care
DX: N63.25 Unspecified lump in the left breast, overlapping quadrants (principal)
CPT/HCPCS: 76642; 77062; 77066

== ENCOUNTER → 2024-06-12 14:00 | Outpatient (BNV) | payer MEDICAID, SELFPAY | PROVIDERS: PCP Nurse Practitioner Primary Care; Visit Provider Radiology Diagnostic Radiology | DX: N63.25 Unspecified lump in the left breast, overlapping quadrants (principal) | CPT/HCPCS: 76642; 77062; 77066 ==

== ENCOUNTER 2024-08-08 13:11 | Outpatient (REF) | payer MEDICAID, SELFPAY ==
[2024-08-09 09:33] LABS: HPV 16,18/45 See PAP report
== END 2024-08-08 13:12 | disposition home or self-care (01) ==
LOC: HO.LNP 13:11
PROVIDERS: Visit Provider Advanced Practice Midwife
DX: Z12.4 Encounter for screening for malignant neoplasm of cervix (principal)
CPT/HCPCS: 87626; 88175

== ENCOUNTER 2024-11-15 12:21 | Outpatient (AMB) | payer MEDICAID, SELFPAY ==
--- NOTE | 2024-11-15 12:27 | A.OFFVIS_ITS ---
Vital Signs 11/15/24 12:47 Height 5 ft 7 in Weight 141 lb BMI 22.1 BP 108/64 Intake Visit Reasons: Colposcopy Loan Servicing Officer Required: No Information Interpreted: non-clinical & clinical Building Construction Foreman: Building Construction Foreman Present (Debbie OTT) Accompanied by: Self / Same As Patient Allergies No Known Allergies [No Known Allergies*] Allergy (Verified 11/15/24 12:49) Post menopausal: Yes HPI Comments Details: Presenting for abnormal Pap smear showing LGSIL HPV high-risk positive, HPV 16/18 negative [facility] Medical History HLD (hyperlipidemia) GERD (gastroesophageal reflux disease) Hypertension Asthma Anxiety Panic attack Social History Household Members: None Housing: Apartment Do you presently have visiting nurse or other home services: No Patient Tobacco Use Status: Current everyday Tobacco user Tobacco use type: Cigarette Cigarettes Per Day: 3 Years Smoked: 10 service: No Current occupational status: unemployed Review of Systems Const All systems reviewed & are unremarkable except as noted in HPI and below Reports as per HPI and Reports no additional complaints GI Reports no additional complaints Reports no additional complaints Physical Exam Vital Signs: Last Vital Signs BP 108/64 11/15/24 12:47 BMI result Body Mass Index 22.1 Office Procedures Colposcopy Colposcopy: Pre-Procedure Counseling: Before beginning the procedure, I conducted comprehensive counseling with the patient. We thoroughly discussed the procedure itself, including its details, alternatives, and all associated risks. This included but not limited to the following complications such as bleeding, infection, and injury to the vagina, bladder, and vessels, as well as the potential need for transfusion with all its associated risks. Subsequently, the patient sign the consent. Pap smear result: LSIL/HPV high-risk positive, HPV 16/18 negative. Procedure: During the procedure, the following steps were performed: A speculum was inserted, and acetic acid was applied. Colposcopy was conducted, allowing visualization of the transformation zone. Acetowhite lesions were identified at the 11 +12+1 o'clock position. Cervical biopsies were obtained from the 11 +12+1 o'clock position, followed by an endocervical curettage (ECC). Vaginoscopy of the upper vagina revealed no evidence of aceto-white lesions. Hemostasis was achieved using Monsel solution, and the patient tolerated the procedure well. Post-Procedure Instructions: The patient was advised to promptly contact the office or the after hours answering service or go to the emergency room if experiencing a temperature exceeding 100.4?F, abdominal pain, nausea/vomiting, or bleeding. Additionally, the patient was instructed to abstain from vaginal intercourse and bathtub use. The patient confirmed understanding of these instructions. Discharge Instructions: The patient was instructed to schedule a follow-up appointment in 2 weeks for further evaluation and management. Please note that this note was generated using a voice recognition program, and errors may have occurred during occupancy specialist. [id number] of cervix including upper vagina with biopsy and ECC Procedure code (CPT) selection complete Assessment & Plan Assessment & Plan (1) LGSIL on Pap smear of cervix: Comment: HPV high-risk positive, HPV 16/18 negative Code(s): R87.612 - Low grade squamous intraepithelial lesion on cytologic smear of cervix (LGSIL) Category: Medical Plan: Discussed with the patient the result of her abnormal pap, its significance, risk of progression, persistence, and regression. the false positive/negative rate of a Pap smear as a screening test in detecting cervical cancer and the indication for a diagnostic test -colposcopy, biopsy, endocervical curettage. The patient verbalized understanding and agreed with the plan, all questions answered. Colposcopy biopsy ECC done, see procedure Orders: Orders AMB Colposcopy Today R87.612 - Low grade squamous intraepithelial lesion on cytologic smear of cervix (LGSIL) Coding Level of Care Code Procedure Only Diagnoses LGSIL on Pap smear of cervix R87.612 CPT Codes Colposcopy - CPT: 54716-[id number] of cervix including upper vagina with biopsy and ECC ([id number])
[2024-11-15 12:47] VITALS: BP 108/64; BMI 22.1
== END 2024-11-15 13:21 | disposition home or self-care (01) ==
LOC: HO.HWS 12:21
PROVIDERS: PCP Nurse Practitioner Primary Care; Visit Provider Obstetrics & Gynecology
DX: R87.612 Low grade squamous intraepithelial lesion on cytologic smear of cervix (LGSIL) (principal)
CPT/HCPCS: 57454

== ENCOUNTER 2024-11-15 12:21 | Outpatient (REF) | payer MEDICAID, SELFPAY | END 2024-11-15 12:22 | disposition home or self-care (01) | LOC: HO.LNP 12:21 | PROVIDERS: PCP Nurse Practitioner Primary Care; Visit Provider Obstetrics & Gynecology | DX: R87.612 Low grade squamous intraepithelial lesion on cytologic smear of cervix (LGSIL) (principal) | CPT/HCPCS: 57454; 88305 ==

== ENCOUNTER 2024-12-19 12:24 | Outpatient (AMB) | payer MEDICAID, SELFPAY ==
--- NOTE | 2024-12-19 12:21 | A.OFFVIS_ITS ---
Intake Visit Reasons: Colpo results Supervisory Air Intercept Controller Required: No Allergies No Known Allergies [No Known Allergies*] Allergy (Verified 11/15/24 12:49) HPI Comments Details: The patient is scheduled a telehealth visit to discuss the results the colpo biopsy ECC pathology which showed the following: A. Endocervix, curettage: - Low-grade squamous intraepithelial lesion (MECHELLE 1). - No endocervical epithelium identified. B. Cervix, 1 o'clock, biopsy: - Squamous mucosa within normal limits. - No endocervical epithelium identified. C. Cervix, 11 o'clock, biopsy: - Squamous mucosa within normal limits. - No endocervical epithelium identified. D. Cervix, 12 o'clock, biopsy: - Squamous epithelium within normal limits. - No endocervical epithelium identified [facility] Medical History HLD (hyperlipidemia) GERD (gastroesophageal reflux disease) Hypertension Asthma Anxiety Panic attack Social History Household Members: None Housing: Apartment Do you presently have visiting nurse or other home services: No Patient Tobacco Use Status: Current everyday Tobacco user Tobacco use type: Cigarette Cigarettes Per Day: 3 Years Smoked: 10 service: No Current occupational status: unemployed Review of Systems Const All systems reviewed & are unremarkable except as noted in HPI and below Reports as per HPI and Reports no additional complaints GI Reports no additional complaints Reports no additional complaints Telehealth Telehealth Telehealth Platform: Telephone Location of provider rendering services: practice address Location of patient: address on file Patient Identification confirmed using: Name, : Yes Telehealth method: voice only Patient verbally consented to treatment: Yes Patient verbally consented to billing insurance company: Yes Patient informed of any privacy concerns related to visit: No Minutes spent on Phone/Video with Pt.: 2 Assessment & Plan Assessment & Plan (1) MECHELLE I (cervical intraepithelial neoplasia I): Code(s): N87.0 - Mild cervical dysplasia Category: Medical Plan: Discussed with the patient the pathology results of the colposcopy biopsies & endocervical curettage ( mild dysplasia-MECHELLE 1). Discussed with the patient the sensitivity specificity, positive and negative predictive value in detecting cervical cancer in addition discussed the regression, persistence and progression rates. Recommended co-testing in 12 months, if cytology and or HPV are abnormal will proceed was colposcopy biopsy and endocervical curettage. Instructions given to the patient to schedule a co test appointment in 1 year. All questions answered the patient verbalized understanding. I spent a total of 20 minutes reviewing the chart, talking to the patient via phone and documenting in the medical record. Coding Level of Care Code Tele Est Pt Level 3 (64300) Diagnoses MECHELLE I (cervical intraepithelial neoplasia I) N87.0
--- OUTSIDE RECORDS SUMMARY | 2024-12-19 12:26 | XMS_ITS | Encounter Summary ---
Author Organization [employer] Address [address] [place] [address] [address] [place] [address] Care Team Providers Care Thread Cutter Name Role Phone Erlinda Barnett Primary Care Provider [phone] Encounter Details Date Type Department Care Team (Late st Contact Info) Description 07/08/2022 Orders Only [facility] [address] [place] [address] Meryl Walton LPN Social History Tobacco Use Types Packs/Day Years Used Date Smoking Tobacco: Never Assessed Comments Unknown Sex and Gender Information Value Date Recorded Sex Assigned at Female 05/23/2022 10:20 AM EDT Legal Sex Female 10:20 AM EDT Gender Identity Female 05/23/2022 10:20 AM EDT Sexual Orientation Straight 05/23/2022 10 :20 AM EDT documented as of this encounter Plan of Treatment Upcoming Encounters Date Type Department Care Team (Late st Contact Info) Description 01/15/2025 1:30 PM EDT Office Visit [facility] ADULT DENTAL [address] [place] [address] Kervin Patino DDS [address] [place] [address] 03/04/2025 2:00 PM EDT Office Visit [facility] MEDICINE [address] [place] [address] Erlinda Barnett ANP [address] [place] [address] documented as of this encounter Visit Diagnoses Not on filedocumented in this encounter Care Teams Thread Cutter Relationship Specialty Start Date End Date Erlinda Barnett ANP [address] [place] [address] PCP - General Family Medicine 03/17/22 documented as of this encounter
== END 2024-12-19 14:04 | disposition home or self-care (01) ==
LOC: HO.HWS 12:24
PROVIDERS: PCP Nurse Practitioner Primary Care; Visit Provider Obstetrics & Gynecology
DX: N87.0 Mild cervical dysplasia (principal)
CPT/HCPCS: 99213